=== PATIENT | male | born 2000 | race Caucasian/White ===

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

== ENCOUNTER 2023-10-18 03:08 | Emergency (ER) | payer MEDICAID, SELFPAY ==
[2023-10-18] MEDS ORDERED: Naproxen 500 MG TAB ONE (03:36)
[2023-10-18] MEDS ORDERED: cefTRIAXone (ROCEPHIN) 1 GM VIAL ONE (03:37)
[2023-10-18] MEDS ORDERED: Lidocaine 1% (PF) 30 ML VIAL ONE (03:39)
== END 2023-10-18 04:22 | disposition home or self-care (01) ==
LOC: NAV ERS 03:08
DX: K08.89 Other specified disorders of teeth and supporting structures (principal); K02.9 Dental caries, unspecified; F15.90 Other stimulant use, unspecified, uncomplicated; Z87.891 Personal history of nicotine dependence
CPT/HCPCS: 96372; 99282; J0696; J2001

== ENCOUNTER 2023-11-07 09:03 | Emergency (ER) | payer OTHER, SELFPAY ==
[2023-11-07] MEDS ORDERED: Bacitracin 1 PK ONE (11:19)
[2023-11-07] MEDS ORDERED: Boostrix 0.5 ML (Tdap) VIAL (>/=7 yrs of age) ONE (11:19)
== END 2023-11-07 12:05 | disposition home or self-care (01) ==
LOC: NAV ERS 09:03
DX: S63.610A Unspecified sprain of right index finger, initial encounter (principal); S00.93XA Contusion of unspecified part of head, initial encounter; S00.83XA Contusion of other part of head, initial encounter; S40.812A Abrasion of left upper arm, initial encounter; J45.909 Unspecified asthma, uncomplicated; V59.9XXA Occupant (driver) (passenger) of pick-up truck or van injured in unspecified traffic accident, initial encounter; Z87.891 Personal history of nicotine dependence; Z79.899 Other long term (current) drug therapy
CPT/HCPCS: 70450; 70486; 90471; 90715